=== PATIENT | male | born 1960 | race Two or more races ===

== ENCOUNTER → 2017-04-16 | Outpatient (CLI) | payer OTHER ==
[2017-04-16 12:59] LABS: CHCM 35.1; HDW 2.49; HGB 15.2 gm/dL (13.0-17.5); MCH 32.4 pg (25.0-35.0); MCHC 35.4 g/dL (31.0-37.0); MCV 91.5 fL (80.0-100.0); Mean Platelet Volume 6.8; RDW 12.5 % (11.5-15.5); WBC 12.2 k/uL (3.8-10.6)
[2017-04-16 14:58] LABS: Erythrocyte Sedimentation Rate 20 mm/hr (0-15)
== END | disposition home or self-care (01) ==
LOC: LABWHC1 12:30
PROVIDERS: ATTEND Physician Assistant
DX: M25.522 Pain in left elbow (principal); M70.22 Olecranon bursitis, left elbow; L03.114 Cellulitis of left upper limb; R22.32 Localized swelling, mass and lump, left upper limb
CPT/HCPCS: 36415; 83520; 85027; 85652; 86140

== ENCOUNTER → 2017-04-16 | Outpatient (CLI) | payer OTHER ==
[~2017-04-16] MED LIST: SODIUM CHLORIDE 0.9% 250 ML in EMPTY BAG 1 BAG IV PRN; SODIUM CHLORIDE 0.9% 500 ML in EMPTY BAG 1 BAG IV PRN; cefTRIAXone 2,000 MG in SODIUM CHLORIDE 0.9% 100 ML IVPB ONE
[2017-04-16 14:14] VITALS: BP 131/63; PULSE 88; RESP 16; TEMP 98.7
== END ==
LOC: PROCWHC3 13:15
PROVIDERS: ATTEND Physician Assistant
DX: M70.22 Olecranon bursitis, left elbow (principal); R22.32 Localized swelling, mass and lump, left upper limb
CPT/HCPCS: 96365; J0696; 36415; 83520; 85027; 85652; 86140